=== PATIENT | male | born 1950 | race Caucasian/White ===

== ENCOUNTER 2016-10-27 20:43 | Emergency (ER) | payer MEDICARE, BC ==
[~2016-10-27] VITALS: Ht 182.9 cm; Wt 90.7 kg
--- NOTE | 2016-10-27 21:20 | NUR ---
DR. CRUZ AT BEDSIDE FOR EVAL.
[2016-10-27] MEDS: CEFTRIAXONE 1 G VIAL IM ONE (21:35)
[2016-10-27] MEDS: diphenhydrAMINE 50 MG CAPSULE PO ONE (21:35)
--- NOTE | 2016-10-27 21:35 | NUR ---
Patient discharged to home in stable conditon. Written and verbal after care instructions given. Patient verbalizes understanding of instructions.
[2016-10-27 21:37] VITALS: BP 120/83
[2016-10-27] MEDS ORDERED: diphenhydrAMINE 25 MG CAP PO ONE (21:43)
[2016-10-27] MEDS ORDERED: CEFTRIAXONE 1 G VIAL ONE (21:43)
[2016-10-27] MEDS ORDERED: LIDOCAINE HCL 1% 20 ML VIAL ONE (21:43)
== END 2016-10-27 21:55 | disposition home or self-care (01) ==
LOC: ER 20:47
DX: S50.862A Insect bite (nonvenomous) of left forearm, initial encounter (principal); C67.9 Malignant neoplasm of bladder, unspecified; W57.XXXA Bitten or stung by nonvenomous insect and other nonvenomous arthropods, initial encounter; Y93.53 Activity, golf; Y99.8 Other external cause status; Y92.89 Other specified places as the place of occurrence of the external cause
CPT/HCPCS: A4663; J0696; J3490; Q0163